=== PATIENT | female | born 1965 | race Caucasian/White ===

== ENCOUNTER 2020-08-03 21:57 | Emergency (ER) | payer BC ==
[2020-08-03] MEDS ORDERED: Nitroglycerin 0.4 MG Tab.SL SL ONE (22:05)
--- NOTE | 2020-08-03 22:14 | EDM.PDOC ---
ED HPI GENERAL MEDICAL PROBLEM - General Chief Complaint: Chest Pain Stated Complaint: CHEST PAINS Time Seen by Provider: 08/03/20 22:00 Source of Information: Reports: Patient, Family History Limitations: Reports: No Limitations - History of Present Illness INITIAL COMMENTS - FREE TEXT/NARRATIVE: 54-year-old female with just over 1 hour of chest pressure, bilateral arm ache and tenderness and tingling. No shortness of breath or diaphoresis, no nausea or vomiting. She can make the pressure worse by taking a deep breath. She laid down and thought it would resolve but it was persistent so she came in to be checked. She has no cardiac history, she just had a preoperative history and physical yesterday and had no problems. She is not physically active, she is a non-smoker. Her gave her "several baby aspirin" earlier this evening. Onset: Sudden Location: Reports: Chest, Upper Extremity, Left, Upper Extremity, Right Associated Symptoms: Reports: Chest Pain (Mostly a pressure sensation), Malaise. Denies: Cough, Diaphoresis, Fever/Chills, Nausea/Vomiting, Shortness of Breath, Weakness chest pain Pain Score (Numeric/FACES): 7 - Related Data Allergies Allergy/AdvReac Type Severity Reaction Status Date / Time Iodinated Contrast Media Allergy Cannot Verified 08/03/20 22:05 Remember Sulfa (Sulfonamide Allergy Hives Verified 08/03/20 22:05 Antibiotics) Home Meds: Home Meds Levothyroxine 125 mcg PO ACBREAKFAST 08/03/20 [History] ED ROS GENERAL - Review of Systems Review Of Systems: See Below Constitutional: Denies: Fever, Chills HEENT: Reports: No Symptoms Respiratory: Denies: Shortness of Breath, Cough Cardiovascular: Reports: Chest Pain (Pressure) Musculoskeletal: Reports: Other (Both arms feel heavy) Skin: Reports: No Symptoms Neurological: Reports: Paresthesia (Slight paresthesias or tingling in her arms) ED EXAM, GENERAL - Physical Exam Exam: See Below Exam Limited By: No Limitations General Appearance: Alert, No Apparent Distress Head: Atraumatic Respiratory/Chest: No Respiratory Distress, Lungs Clear Cardiovascular: Regular Rate, Rhythm, No Murmur. No: Extra Beats GI/Abdominal: Soft, Non-Tender Extremities: No: Pedal Edema Neurological: Alert, Oriented Psychiatric: Normal Affect, Normal Mood Skin Exam: Warm, Dry EKG INTERPRETATION ST-T: Depressed (Very minimal ST depression in the anterior leads V2 through V5, computerized interpretation is normal) Course - Vital Signs Last Recorded V/S: Last Vital Signs Temp 96.5 F L 08/04/20 02:35 Pulse 68 08/04/20 02:35 Resp 11 L 08/04/20 02:35 BP 169/102 H 08/04/20 02:35 Pulse Ox 97 08/04/20 02:35 - Orders/Labs/Meds Orders: Active Orders 24 hr Category Date Time Status EKG 12 Lead [EK] Routine Ther 08/03/20 22:05 Ordered EKG 12 Lead [EK] Routine Ther 08/03/20 23:04 Ordered Labs: Laboratory Tests 08/03/20 08/03/20 08/04/20 Range/Units 22:17 22:17 02:00 WBC 5.6 (4.5-11.0) K/uL RBC 3.74 (3.30-5.50) M/uL Hgb 12.1 (12.0-15.0) g/dL Hct 37.2 (36.0-48.0) % MCV 100 H (80-98) fL MCH 32 H (27-31) pg MCHC 33 (32-36) % Plt Count 274 (150-400) K/uL Neut % (Auto) 46 (36-66) % Lymph % (Auto) 43 (24-44) % [place] % (Auto) 10 H (2-6) % Eos % (Auto) 1 L (2-4) % Baso % (Auto) 0 (0-1) % Sodium 136 L (140-148) mmol/L Potassium 3.9 (3.6-5.2) mmol/L Chloride 102 (100-108) mmol/L Carbon Dioxide 27 (21-32) mmol/L Anion Gap 10.9 (5.0-14.0) mmol/L BUN 26 H (7-18) mg/dL Creatinine 1.6 H (0.6-1.0) mg/dL Est Cr Clr Drug Dosing 32.86 mL/min Estimated GFR (MDRD) 33 L (>60) Glucose 88 (74-106) mg/dL Calcium 8.5 (8.5-10.1) mg/dL Total Bilirubin 0.4 (0.2-1.0) mg/dL AST 23 (15-37) U/L ALT 25 (12-78) U/L Alkaline Phosphatase 42 L (46-116) U/L Troponin I < 0.017 2.629 H* (0.000-0.056) ng/mL Total Protein 6.9 (6.4-8.2) g/dL Albumin 3.6 (3.4-5.0) g/dL Globulin 3.3 (2.3-3.5) g/dL Albumin/Globulin Ratio 1.1 L (1.2-2.2) Meds: Medications Discontinued Medications Generic Name Dose Route Start Last Admin Trade Name Freq PRN Reason Stop Dose Admin Heparin Sodium (Porcine) 4,000 units 08/04/20 02:35 08/04/20 02:41 Heparin Sodium IVPUSH 08/04/20 02:36 4,000 units ONETIME ONE Administration Heparin Sodium/Dextrose 25,000 units in 500 mls @ 16 mls/hr 08/04/20 02:45 08/04/20 02:59 Heparin 25,000 Units In D5w 500 Ml IV 800 units/hr TITRATE OSVALDO 16 mls/hr Administration Protocol 800 UNITS/HR Nitroglycerin 0.4 mg 08/03/20 22:05 08/03/20 22:13 Nitrostat SL 08/03/20 22:06 0.4 mg ONETIME ONE Administration - Re-Assessments/Exams Free Text/Narrative Re-Assessment/Exam: 08/03/20 22:40 CBC, CMP and troponin were obtained. Patient was given 1 sublingual nitroglycerin which seemed to help the pressure but also gave her a headache. She will be monitored until labs return, EKG repeated and we will then discuss further evaluation or care at that time. Repeat EKG looked improved. Dr. Bharathi Morales, gift shop clerk on-call for [facility] was contacted but he was unable to look at the EKGs so recommended admission and observation with serial troponins, if negative a stress test. 08/04/20 02:43 Troponin initially returned 0. Pain had decreased to just a very minimal pressure. She was asked to wait for 4 hours to repeat the troponin, she was observed and a repeat troponin was 2.6. She was then given 4000 units of IV heparin, which will be followed by an 800 unit an hour drip. Hospitalist on- call in [place] kindly accepted her transfer. 08/04/20 02:55 Prior to discharge the patient admitted she was still having some slight chest pressure. Morphine or Ativan was offered but she declined. Nitroglycerin was held because of the intense headache she developed with the first dose. 08/04/20 06:40 Departure - Departure Time of Disposition: 03:04 Disposition: DC/Tfer to Other 70 Clinical Impression: Non-STEMI (non-ST elevated myocardial infarction) - Discharge Information Referrals: Hilario Powell MD [Primary Care Provider] - Forms: ED Department Discharge Care Plan Goals: Patient is to be transferred by EMS to [facility] for cardiology evaluation and treatment of a non-STEMI. Sepsis Event Note (ED) - Focused Exam Vital Signs: Vital Signs Temp Pulse Resp BP BP Pulse Ox 08/04/20 02:35 96.5 F L 68 11 L 169/102 H 97 08/04/20 02:08 67 9 L 149/86 H 99 08/03/20 23:30 65 17 150/86 H 99 08/03/20 22:22 65 8 L 143/87 H 97 08/03/20 22:13 181/101 H 08/03/20 22:08 96.6 F L 70 13 181/101 H 100 08/03/20 22:07 96.6 F L 70 13 181/101 H 100 - My Orders Last 24 Hours: My Active Orders 08/03/20 22:05 EKG 12 Lead [EK] Routine 08/03/20 23:04 EKG 12 Lead [EK] Routine - Assessment/Plan Last 24 Hours: My Active Orders 08/03/20 22:05 EKG 12 Lead [EK] Routine 08/03/20 23:04 EKG 12 Lead [EK] Routine
[2020-08-04] MEDS ORDERED: Heparin Sodium 5,000 Units/ML Vial IVPUSH ONE (02:35)
[2020-08-04] MEDS ORDERED: Heparin Sodium/D5W 25,000 UNITS/500 ML BAG IV SCH (02:45)
== END 2020-08-04 03:09 | disposition other institution (70) ==
LOC: JP.ED 21:57
DX: I21.4 Non-ST elevation (NSTEMI) myocardial infarction (principal); Z91.041 Radiographic dye allergy status; Z88.2 Allergy status to sulfonamides; Z79.899 Other long term (current) drug therapy
CPT/HCPCS: 36415; 80053; 84484; 85025; 93005; 93010; 96374; 96375; 99285; J1644; A9270-GY

== ENCOUNTER 2024-07-01 09:32 | Emergency (ER) | payer BC, OTHER ==
[2024-07-01 10:17] LABS: BASOPHILS PERCENT AUTO 0.3 % (0.1-1.3); EOSINOPHILS ABSOLUTE AUTO 0.07 K/uL (0.00-0.40); EOSINOPHILS PERCENT AUTO 1.2 % (0.0-5.4); HEMOGLOBIN 12.4 g/dL (11.2-15.5); IMMATURE GRAN PERCENT AUTO 0.2 % (0.0-0.7); LYMPHOCYTES ABSOLUTE AUTO 1.79 K/uL (0.8-3.3); LYMPHOCYTES PERCENT AUTO 30.9 % (11.4-47.7); MEAN CORPUSCULAR HEMOGLOBIN 31.9 pg (31.6-35.5); MEAN CORPUSCULAR HGB CONC 35.4 g/dL (31.6-35.5); MONOCYTES ABSOLUTE AUTO 0.43 K/uL (0.20-0.90); MONOCYTES PERCENT AUTO 7.4 % (3.3-12.6); NEUTROPHILS ABSOLUTE AUTO 3.47 K/uL (1.0-7.6); PLATELET COUNT,PLT 228 K/uL (130-375); RED BLOOD CELL COUNT 3.89 M/uL (3.77-5.24); WHITE BLOOD CELL COUNT,WBC 5.8 K/uL (3.2-11.0)
[2024-07-01 10:22] LABS: BASOPHILS ABSOLUTE AUTO 0.02 K/uL (0.00-0.10); IMMATURE GRAN ABSOLUTE AUTO 0.01 K/uL (0.00-0.23)
[2024-07-01 10:46] LABS: A/G RATIO 1.1 (1.2-2.2); ALANINE AMINOTRANSFERASE,ALT 32 U/L (12-78); ALBUMIN 3.6 g/dL (3.4-5.0); ALKALINE PHOSPHATASE 105 U/L (46-116); ASPARTATE AMNIOTRANSFERASE,AST 25 U/L (15-37); BILIRUBIN TOTAL 0.6 mg/dL (0.2-1.0); BLOOD UREA NITROGEN,BUN 34 mg/dL (7-18); CALCIUM 9.7 mg/dL (8.5-10.1); CARBON DIOXIDE,CO2 26 mmol/L (21-32); CHLORIDE,CL 106 mmol/L (100-108); CREATININE 1.2 mg/dL (0.6-1.0); EST CRCL DRUG DOSING (CG) 43.59 mL/min; ESTIMATED GFR 52 mL/min (>60); GLUCOSE RANDOM 81 mg/dL (74-106); POTASSIUM,K 4.2 mmol/L (3.6-5.2); PROTEIN TOTAL,TP 6.9 g/dL (6.4-8.2); SODIUM,NA 139 mmol/L (140-148); TSH ULTRASENSITIVE 0.011 uIU/mL (0.358-3.740)
[2024-07-01 10:47] LABS: ANION GAP 11.2 mmol/L (5.0-14.0)
== END 2024-07-01 11:25 | disposition home or self-care (01) ==
LOC: JP.ED 09:32
DX: R55 Syncope and collapse (principal); E78.00 Pure hypercholesterolemia, unspecified; E03.9 Hypothyroidism, unspecified; Z88.2 Allergy status to sulfonamides; Z91.041 Radiographic dye allergy status; Z79.890 Hormone replacement therapy; Z79.899 Other long term (current) drug therapy; Z86.16 Personal history of COVID-19
CPT/HCPCS: 36415; 80053; 84443; 84484; 85025; 99283; 99285

== ENCOUNTER 2025-09-29 16:39 | Emergency (ER) | payer BC ==
[2025-09-29 18:18] LABS: BASOPHILS PERCENT AUTO 0.4 % (0.1-1.3); EOSINOPHILS ABSOLUTE AUTO 0.15 K/uL (0.00-0.40); EOSINOPHILS PERCENT AUTO 3.0 % (0.0-5.4); IMMATURE GRAN PERCENT AUTO 0.0 % (0.0-0.7); LYMPHOCYTES ABSOLUTE AUTO 1.44 K/uL (0.8-3.3); LYMPHOCYTES PERCENT AUTO 28.3 % (11.4-47.7); MONOCYTES ABSOLUTE AUTO 0.44 K/uL (0.20-0.90); MONOCYTES PERCENT AUTO 8.7 % (3.3-12.6); NEUTROPHILS ABSOLUTE AUTO 3.03 K/uL (1.0-7.6); NEUTROPHILS PERCENT AUTO 59.6 % (40.0-78.1); PLATELET COUNT,PLT 205 K/uL (130-375); RED BLOOD CELL COUNT 4.00 M/uL (3.77-5.24); WHITE BLOOD CELL COUNT,WBC 5.1 K/uL (3.2-11.0)
[2025-09-29 18:19] LABS: BASOPHILS ABSOLUTE AUTO 0.02 K/uL (0.00-0.10); IMMATURE GRAN ABSOLUTE AUTO 0.00 K/uL (0.00-0.23)
[2025-09-29] MEDS: Lidocaine 2% Viscous Solution 15 ML UD PO ONE (18:19)
[2025-09-29 18:33] LABS: BLOOD UREA NITROGEN,BUN 22 mg/dL (7-18); CARBON DIOXIDE,CO2 29 mmol/L (21-32); CHLORIDE,CL 98 mmol/L (100-108); CREATININE 0.9 mg/dL (0.6-1.0); ESTIMATED GFR 73 mL/min (>60); GLUCOSE RANDOM 84 mg/dL (74-106); POTASSIUM,K 4.4 mmol/L (3.6-5.2); SODIUM,NA 134 mmol/L (140-148)
[2025-09-29 18:44] LABS: CORONAVIRUS COVID-19 NAA NEGATIVE (NEGATIVE); INFLUENZA A NAA NEGATIVE (NEGATIVE); INFLUENZA B NAA NEGATIVE (NEGATIVE); RESPIRATORY SYNCYTIAL VIR NAA NEGATIVE (NEGATIVE)
== END 2025-09-29 19:07 | disposition home or self-care (01) ==
LOC: JP.ED 16:39
DX: J06.9 Acute upper respiratory infection, unspecified (principal); I10 Essential (primary) hypertension; E78.00 Pure hypercholesterolemia, unspecified; E03.9 Hypothyroidism, unspecified; Z88.2 Allergy status to sulfonamides; Z91.041 Radiographic dye allergy status; Z79.890 Hormone replacement therapy; Z86.16 Personal history of COVID-19
CPT/HCPCS: 36415; 80048; 85025; 87637; 87651; 99284; J3490; A9270-GY